=== PATIENT | female | born 1980 | race Caucasian/White ===

== ENCOUNTER → 2022-01-14 13:08 | Outpatient (BNVA) | payer OTHER, MEDICAID, SELFPAY | PROVIDERS: Visit Provider Anesthesiology | DX: S83.206A Unspecified tear of unspecified meniscus, current injury, right knee, initial encounter (principal); M17.0 Bilateral primary osteoarthritis of knee | CPT/HCPCS: 99202 ==

== ENCOUNTER 2022-02-19 06:16 | Outpatient (REF) | payer OTHER, MEDICAID, SELFPAY ==
--- NOTE | ~2022-02-19 | FL_ITS ---
EXAMINATION: XR FLUOROSCOPY WITH IMAGES CLINICAL INFORMATION: M25.561 - Pain in right knee COMPARISON: None. TECHNIQUE: Fluoroscopy Supervised By: Dr. Cyrus Coleman. Fluoroscopy Time: 0.1 minutes. Cumulative Dose: 2.93 mGy. DAP: 0.771 Gycm2. Images: 2. FINDINGS: There are spinal needles adjacent to the distal femoral shaft, medial and lateral sides, mid depth. There is a spinal needle adjacent to the proximal tibia on medial side mid depth. FL/FL guidance in treatment room IMPRESSION: Fluoroscopy for pain management procedures.
== END 2022-02-19 06:17 | disposition home or self-care (01) ==
LOC: CF 06:16
PROVIDERS: Visit Provider Anesthesiology
DX: Z13.89 Encounter for screening for other disorder (principal)

== ENCOUNTER → 2022-02-21 08:02 | Outpatient (BNVA) | payer OTHER, MEDICAID, SELFPAY | PROVIDERS: PCP Internal Medicine; Visit Provider Anesthesiology | DX: S83.206D Unspecified tear of unspecified meniscus, current injury, right knee, subsequent encounter (principal); M17.0 Bilateral primary osteoarthritis of knee | CPT/HCPCS: Q3014 ==

== ENCOUNTER 2023-03-27 08:30 | Outpatient (RCR) | payer OTHER, MEDICAID, SELFPAY ==
--- NOTE | 2023-03-26 12:31 | PC.NURSE ---
Unable to meet with Adeel as [facility] staff Jordana told this editorial writer that Adeel told her she needed to leave early today as her PT1 ride was coming at 12:30 to pick her up as she needed to be home early to get children off the bus. She told Jordana that this was not going to be a regular occurrence.
--- NOTE | 2023-03-26 16:40 | HO.PHP ---
Glass Scullion checked in with pt after the [facility] group to help encourage pt not to leave early. Pt stated she has not been sleeping at night, stated she will be leaving at 12:30 because that's when her transportation would be coming to get her, stated she will also try to rest so that she will not be falling asleep in groups tomorrow. Attempts were made to support pt with staying awake in groups. Pt thinks it may be her medication causing her tiredness during the day, Pt encouraged to speak with her doctor making any changes or adjustments. Pt states she will resume groups tomorrow and plan for a full day.
[2023-03-27 10:41] VITALS: BP 112/72; PULSE 79; TEMP 36.7
[2023-03-27 10:44] VITALS: BMI 25.3
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
--- NOTE | 2023-03-27 14:27 | HO.PHP ---
Client's case has been opened and reviewed in treatment team.
--- NOTE | 2023-03-27 16:14 | PC.ADMIT ---
Unable to meet with Riveravitaly on 03/27/22 as [facility] staff Jordana told this narrative writer that Adeel told her she needed to leave early today as her PT1 ride was coming at 12:30 to pick her up as she needed to be home early to get children off the bus. She told Jordana that this was not going to be a regular occurrence. Patient is a 42 year old female who was referred to [facility] by [facility] d/t increased anxiety, depression, and hx of substance use. She reports that she used crack yesterday and is using about twice a week. She stated she is looking for medication assisted tx with [facility] for more support. She is also interested in a head men's golf coach thus we called Jefferson from [facility] who came to [facility] to help set her up with a head men's golf coach. Patient has legal history. HX of A &B and is reportedly on probation. See Integrative Assessment for more information. Patient also reports history of Heroin use however reports she has not used in 10 years and is on MAT with Suboxone SL. When I asked patient if she ever needed narcan she stated, I was clean but I used heroin (one time) in November or December 2022 so I could go into [facility] for treatment of crack. My father who is an addict told me to do this . Patient reports she overdosed and needed to be Narcaned at that time. OD was accidental. Patient reports she had been clean for 8-10 years prior to the overdose. Patient had to leave the program early today. See Nurses note 03/27/23. During the nursing assessment patient presented alert and oriented x4. calm and cooperative. She presented with anxious mood and affect. Denied SI or thoughts to harm herself. She stated she wants to get sober. Medications reconciled with patent's medication list and per pharmacy. I also called [facility] service Jet at and was faxed an old medication list that appeared not to be updated. I called the service again and asked to speak to her VNA to reconcile her medications and the person I spoke to stated someone would call me. I called the VNA number Anneadriana gave me and spoke to Alice WEBER who stated she is updating Riveravitaly' s medication list and stated whatever the pharmacy told me she is taking that is what she is taking. She stated she would try and update the list tonight.
--- NOTE | 2023-03-28 09:37 | PC.NURSE ---
Bello did not show up to the program. I called her and she stated she just woke up. She sounded groggy as if she just woke up. She stated she overslept. She did move out of her boyfriends home and is living in her apartment. She stated we have the address. I asked what she was going to do over the weekend and she stated laundry. I recommended she go to some NA meetings and we discussed meetings she could go to in [place] and also gave her the NA website for meetings. She denied SI, stated she was safe and would be at the program on Friday. [facility] staff is aware.
--- NOTE | 2023-03-28 19:55 | PM.EVENT ---
Event Note Date of Service: 03/28/23 Event Note: Unable to meet with patient as she abruptly left program early yesterday 03/27 and then did not show up to the program today 03/28 (apparently she overslept). Time Spent With Patient Time: Total time managing care of this patient today ____ minutes.
--- NOTE | 2023-03-31 09:31 | PC.NURSE ---
Bello did not show up to the program this morning. I called and left her a message to call me back.
--- NOTE | 2023-03-31 09:57 | PC.NURSE ---
I called Adeel for the second time. I left her another message to call me back. I reached out to Bello's emergency parts counter sales person David who stated he stopped by her house this morning and she was in bed sleeping. He stated she was ok. I asked him to have her call us when she gets up.
--- NOTE | 2023-03-31 16:40 | HO.PHP ---
[facility] staff member followed up with Adeel due to her missing program. PHP staff member informed Adeel due to her attendance at this point in time we will have to be discharging her from services. Adeel felt as though because she informed staff why she was leaving early or not coming in that day it would be excused. PHP staff voiced that the team would like to see Adeel get everything she can from the program and at this point she hasn't completed one full day. PHP staff member encouraged Adeel to contact Jasmine to complete the intake so she can get everything she can from the program. Adeel responded negatively to the clinician and didn't feel it was fair. PHP staff reiterated are protocols and voiced that she can call Jasmine to return to program when ready. Adeel was receptive and asked for the number. [facility] staff member also assessed safety. Adeel reported no concerns around SI, plan or intent and voiced she was safe.
== END 2023-03-27 23:59 | disposition home or self-care (01) ==
LOC: HO.PHPA 08:30
PROVIDERS: Visit Provider Psychiatry & Neurology Psychiatry
DX: F43.10 Post-traumatic stress disorder, unspecified (principal); F32.A Depression, unspecified
CPT/HCPCS: 90791; 90853

== ENCOUNTER 2023-04-28 08:49 | Outpatient (REF) | payer OTHER, SELFPAY ==
[2023-04-28 10:14] LABS: Basophils Percent Auto 0.2 % (0-2); Eosinophils Absolute Auto 0.1 X10*3/uL (0.0-0.4); Eosinophils Percent Auto 1.1 % (0-4); Hematocrit 35.9 % (37.0-47.0); Hemoglobin 12.1 g/dl (12.0-16.0); Imm Gran Abs Auto 0.02 X10*3/uL (0.00-0.03); Imm Gran Pct Auto 0.2 % (0.0-0.4); Lymphocytes Absolute Auto 5.9 X10*3/uL (1.2-4.9); Lymphocytes Percent Auto 62.5 % (20-40); MANUAL DIFF FLAG SCAN; Mean Corpuscular HGB Conc 33.7 g/dl (31.0-35.0); Mean Corpuscular Hemoglobin 29.9 pg (27.0-33.0); Mean Corpuscular Volume 88.6 fL (80.0-98.0); Mean Platelet Volume 9.8 fL (9.4-12.3); Monocytes Absolute Auto 0.7 X10*3/uL (0.1-1.2); Monocytes Percent Auto 7.1 % (2-11); Neutrophils Absolute Auto 2.7 x10*3/uL (2.0-8.3); Neutrophils Percent Auto 28.9 % (45-73); Platelet Count 374 X10*3/uL (160-400); Red Blood Count 4.05 X10*6/uL (4.20-5.50); Red Cell Distribution Width 13.6 % (11.0-16.0); SCAN SMEAR FLAG 1; White Blood Count 9.4 X10*3/uL (4.8-10.8)
[2023-04-28 10:23] LABS: Estimated Average Glucose 114 mg/dL; Hemoglobin A1c % 5.6 % (<6.0)
[2023-04-28 10:42] LABS: SLIDE REVIEW VERIFIED
[2023-04-28 10:58] LABS: Alanine Aminotransferase 7 U/L (0-31); Albumin Level 3.7 g/dL (3.5-5.0); Alkaline Phosphatase 37 U/L (39-117); Anion Gap 13 (12-20); Aspartate Amino Transferase 7 U/L (5-31); Bilirubin Total 0.3 mg/dL (0.0-1.0); Blood Urea Nitrogen 22 mg/dL (9-16); Calcium 8.7 mg/dL (8.4-10.2); Carbon Dioxide 29 mmol/L (22-29); Chloride 104 mmol/L (96-108); Cholesterol 140 mg/dL (<200); Estimated Glomerular Filt Rate > 60; Glucose Fasting 99 mg/dL (60-99); HDL Cholesterol 48 mg/dL (>40); LDL Cholesterol Calculated 81 mg/dL (<100); Potassium 3.7 mmol/L (3.3-5.1); Sodium 142 mmol/L (135-145); Total Protein 6.6 g/dL (6.5-8.0); Triglycerides 56 mg/dL (<150)
[2023-04-28 11:01] LABS: HBS Num1 10.98 mIU/mL (0-7.99); HBc Num1 0.13 S/CO (0.00-0.79); HBsAGNum1 0.42 S/CO (0.00-0.99); HIV AB/AG Nonreactive (Nonreactive); HIV Num 1 0.07 S/CO (0.00-0.99); Hepatitis B Core Antibody Nonreactive (Nonreactive); Hepatitis B Surface Antigen Negative (Negative)
[2023-04-28 11:03] LABS: Syphilis Screen Nonreactive (Nonreactive)
[2023-04-28 11:06] LABS: Free T4 (Free Thyroxine) 1.03 ng/dL (0.71-1.85); Thyroid Stimulating Hormone 0.49 uIU/mL (0.32-4.0)
[2023-04-28 11:57] LABS: HBS Num2 11.67 mIU/mL (0-7.99); ~Hepatitis B Surface Antibody GRAYZONE (Nonreactive)
[2023-04-28 15:32] LABS: CT PCR NOT DETECTED (Not Detect.); NG PCR NOT DETECTED (Not Detect.)
== END 2023-04-28 08:50 | disposition home or self-care (01) ==
LOC: HO.LAB 08:49
PROVIDERS: PCP Internal Medicine; Visit Provider Psychiatry & Neurology Psychiatry
DX: F31.9 Bipolar disorder, unspecified (principal)
CPT/HCPCS: 0353U; 80053; 80061; 80164; 83036; 84439; 84443; 85025; 86704; 86706; 86780; 87340; 87389

== ENCOUNTER 2023-04-29 13:18 | Outpatient (REF) | payer OTHER, SELFPAY ==
[2023-04-29 14:44] LABS: Ethanol < 10 mg/dL
[2023-04-29 15:33] LABS: Amphetamine Screen Urine Not Detected (Not Detect); Barbiturates, Urine Not Detected (Not Detect); Benzodiazepines Screen Urine Not Detected (Not Detect); Cannabinoid Screen Urine Not Detected (Not Detect); Cocaine Screen Urine Not Detected (Not Detect); Fentanyl, urine Not Detected (Not Detect); Opiate Screen Urine Not Detected (Not Detect); Phencyclidine Screen Urine Not Detected (Not Detect)
== END 2023-04-29 13:19 | disposition home or self-care (01) ==
LOC: HO.LAB 13:18
PROVIDERS: Visit Provider Psychiatry & Neurology Psychiatry
DX: F11.20 Opioid dependence, uncomplicated (principal)
CPT/HCPCS: 80307

== ENCOUNTER → 2023-05-02 14:00 | Outpatient (BNV) | payer OTHER, MEDICAID, SELFPAY | PROVIDERS: Visit Provider Psychiatry & Neurology Psychiatry | DX: F11.20 Opioid dependence, uncomplicated (principal); F14.20 Cocaine dependence, uncomplicated; F41.1 Generalized anxiety disorder; F31.30 Bipolar disorder, current episode depressed, mild or moderate severity, unspecified; F43.10 Post-traumatic stress disorder, unspecified | CPT/HCPCS: 90792; 99213 ==

== ENCOUNTER 2023-05-08 14:00 | Outpatient (RCR) | payer OTHER, SELFPAY ==
[2023-04-25 13:14] VITALS: BP 130/76; PULSE 69; TEMP 37; BMI 26.8
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
[2023-04-25 15:15] LABS: Amphetamine Screen Urine Not Detected (Not Detect); Barbiturates, Urine Not Detected (Not Detect); Benzodiazepines Screen Urine POSITIVE (Not Detect); Cannabinoid Screen Urine POSITIVE (Not Detect); Cocaine Screen Urine POSITIVE (Not Detect); Fentanyl, urine Not Detected (Not Detect); Opiate Screen Urine Not Detected (Not Detect); Phencyclidine Screen Urine Not Detected (Not Detect)
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
--- NOTE | 2023-04-28 14:23 | HO.PHP ---
Adeel asked designer writer to call her foreign policy officer Samreen Vieira at [phone], a release was obtained. Meat Counter Clerk called at roughly 2:15 spoke to foreign policy officer Dariel who requested a letter stating that Adeel is currently enrolled at [facility]. The letter was faxed to .The Probabtion officer requested to be notified if Adeel does not complete the program.
--- NOTE | 2023-05-01 18:02 | HO.PHP ---
Client's case has been opened and reviewed in treatment team.
--- NOTE | 2023-05-02 10:45 | HO.PHPPROGNO ---
Subjective Subjective Date of Service: 05/02/23 Reason For Visit: PTSD,anxiety Interim History: Patient seen for follow-up she's been falling asleep in groups this AM according to staff. She reports that she just picked up her clonazepam 1 mg TID script her PCP had sent over. She started back on this morning. She denies feeling sleepy and seems surprised that staff were concerned about her being sleepy. She admits perhaps it is more than she needs, and is agreeable to having the dose decreased to 1/2 tablet and will plan to decrease the dose to 0.5 mg TID with 0.5 mg prn (in lieu of 1 mg TID). She shares some complaints about her VNA not knowing what she is doing and patient having to remind her when she runs out of medications. She says she has been doing better since moving her Depakote ER from 1000 mg qAM to 500 mg BID. She reports that her provider increased her dose of Buspar to 15 mg TID. She reports that the prazosin has been working well, she is sleeping better but is still having disturbed sleep, dreams and would like to increase the dose at night. She denies any substance use and is open to increasing topiramate to BID dosing. Denies any SI, HI, AH, VH. Medication Compliance: Yes Side effects from medications: No Attending Groups: Yes Review of Systems Acute medical concerns: No Mental Status Exam Mental Status Exam Narrative: Alert, oriented, in no acute distress. Calm, cooperative, engaged. No psychomotor agitation or neurovegetative retardation. Eye contact maintained. Mood anxious, affect variable, mood congruent. Speech normal. Thought process linear, coherent. Thought content related to stressors, denies any helplessness, hopelessness or SI.? No aggressive ideation or HI. No paranoia or delusional content elicited. No evidence of psychosis. Insight and judgment fair but adequate. Diagnostics Vital Signs (24Hr): BMI result Body Mass Index 26.8 Assessment & Plan Assessment & Plan (1) Opioid use disorder: Status: Acute Code(s): F11.90 - Opioid use, unspecified, uncomplicated (2) Cocaine abuse: Status: Acute Code(s): F14.10 - Cocaine abuse, uncomplicated (3) Generalized anxiety disorder: Status: Acute Code(s): F41.1 - Generalized anxiety disorder (4) Bipolar disorder, most recent episode depressed: Status: Acute Code(s): F31.30 - Bipolar disorder, current episode depressed, mild or moderate severity, unspecified (5) PTSD (post-traumatic stress disorder): Status: Acute Code(s): F43.10 - Post-traumatic stress disorder, unspecified Plan increase topiramate to 50 mg qhs start topiramate 25 mg qAM increase prazosin to 2 mg qhs (or 1 mg if better tolerated) check VS on Friday to see if theres room for instituting AM dose of prazosin decrease clonazepam to 0.5 mg TID and 0.5 mg PRN continue Buspar 15 mg TID continue duloxetine Patient educated on: diagnosis, medication risk/benefits and substance abuse Informed Consent: understands Reason for contiued partial hosp. stay Substantial Risk for: inability to function, rapid decompensation and med/psych decompensation Certification I certify that partial hospital treatment is medically necessary due to the symptoms and problems resulting from the patient's mental illness and the failure to treat the patient at the partial hospital level of care would likely result in the patient requiring inpatient psychiatric care which could not be prevented at a less intensive level of care. Total time managing care of this patient today __30__ minutes. Discharge Plan Discharge Attending provider: Kellie Magdaleno Medications: New topiramate 50 mg tablet 50 mg PO BEDTIME 30 Days Qty: 30 0RF Continued duloxetine 20 mg capsule,delayed release(DR/EC) 20 mg PO DAILY Rx Instructions: TAKE 1 CAPSULE BY MOUTH WITH 60mg CAPSULE FOR total OF 80mg EVERY MORNING prednisone 20 mg Tablet 40 mg PO DAILY Rx Instructions: Take two tabs daily x 4 days. Filled 04/24/23. olanzapine 5 mg Tablet 5 mg PO BEDTIME Rx Instructions: Take one tab by mouth at bedtime with the 10 mg Olanzapine tab. olanzapine 10 mg tablet 10 mg PO BID albuterol sulfate 90 mcg/actuation HFA aerosol inhaler 2 puff inhalation QID PRN (Reason: wheezing) fluticasone propionate 50 mcg/actuation spray,suspension 1 spray intranasal QAM buspirone 15 mg Tablet 15 mg PO TID multivitamin with folic acid [Daily-Genie (with folic acid)] 400 mcg tablet 1 tab PO DAILY fluticasone furoate-vilanterol [Breo Ellipta] 200-25 mcg/dose blister with device 1 ea inhalation DAILY naproxen 500 mg tablet 500 mg PO BID PRN (Reason: moderate pain) pregabalin 150 mg capsule 150 mg PO BID buprenorphine-naloxone 8-2 mg film 2 film sublingual DAILY varenicline 0.5 mg tablet 0.5 mg PO BID duloxetine 60 mg capsule,delayed release(DR/EC) 60 mg PO DAILY hydroxyzine pamoate 25 mg capsule 25 - 50 mg PO TID Rx Instructions: Take 1-2 capsules three times a day for anxiety or insomnia melatonin 5 mg tablet 5 mg PO BEDTIME ferrous sulfate 324 mg (65 mg iron) tablet,delayed release (DR/EC) 324 mg PO DAILY acetaminophen [Pain Relief ES (acetaminophen)] 500 mg tablet 1,000 mg PO Q8H PRN (Reason: severe pain) omeprazole 20 mg capsule,delayed release(DR/EC) 20 mg PO BID docusate sodium 100 mg capsule 100 mg PO BID PRN (Reason: Constipation) clonazepam 1 mg tablet 1 mg PO TID montelukast 10 mg tablet 10 mg PO BEDTIME Changed divalproex 500 mg tablet extended release 24 hr 1,000 mg PO QPM Qty: 30 0RF topiramate 25 mg tablet 25 mg PO QAM Qty: 30 0RF prazosin 1 mg capsule 1 - 2 mg PO BEDTIME Qty: 30 0RF
[2023-05-02 15:31] LABS: Amphetamine Screen Urine Not Detected (Not Detect); Barbiturates, Urine Not Detected (Not Detect); Benzodiazepines Screen Urine Not Detected (Not Detect); Cannabinoid Screen Urine Not Detected (Not Detect); Cocaine Screen Urine Not Detected (Not Detect); Fentanyl, urine Not Detected (Not Detect); Opiate Screen Urine Not Detected (Not Detect); Phencyclidine Screen Urine Not Detected (Not Detect)
--- NOTE | 2023-05-06 09:36 | PC.NURSE ---
Adeel did not show up to the program this morning. I called and left her a voice message to call me back. Awaiting a call back.
--- NOTE | 2023-05-06 09:52 | PC.NURSE ---
Left second message on Adeel's voice mail to call me back regarding her absence from the program today. Per protocol I called Adeel's emergency contact listed David Aiken who is her partner and left him a message to call me back to f/u with Adeel's absence from the program today. Awaiting call back.
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
--- NOTE | 2023-05-07 14:47 | HO.PHP ---
Jewelry Finisher met with pt around 12:00 pm to call [facility] and to complete the referral packet. The referral was completed with Adeel and paperwork was submitted via email as requested, Pt wants to attend [facility] post discharge from [facility], for further addiction support.
--- NOTE | 2023-05-08 13:17 | PC.NURSE ---
Appointment with Chief Wellness Officer at [facility] at [address] [place] [address]. Office Number [phone]. Appointment on May 28, 2023 at 2:00pm.
--- NOTE | 2023-05-08 17:41 | HO.PHPPROGNO ---
Subjective Subjective Date of Service: 05/08/23 Reason For Visit: PTSD,anxiety Interim History: Patient seen for follow-up, anticipating discharge at the end of program today.? Patient reports that she will be going to [facility]. Reports no acute issues or concerns. Medication compliant, she is noted to be sleepy in gabby AM groups, she agrees it may be her medication. We moved her 1000 mg ER Depakote from AM dosing to BID dosing (500 mg BID), she did not want the olanzapine to be decreased, so she continued on 10 mg in AM and 15 mg QHS. Today she is open to redistributing the olanzapine to 5 mg in AM and 20 mg at night. medications well-tolerated. And lowering the Dpeakote AM dose to 250 mg and continue 500 mg qhs. She otherwise denies any adverse effects.? Mood is stable.? Denies any hopelessness or SI. Denies thoughts of harming self or others at this time. Denies any aggressive ideation or HI. Denies any paranoia or AH or VH. Sleep, appetite, energy stable. Medication Compliance: Yes Side effects from medications: No Attending Groups: Yes Review of Systems Acute medical concerns: No Mental Status Exam Mental Status Exam Narrative: Alert, oriented, in no acute distress. Calm, cooperative. No psychomotor agitation or neurovegetative retardation. Eye contact maintained. Mood tired but euthymic, affect mood congruent. Speech normal. Thought process linear, coherent. Thought content related to stressors, denies any helplessness, hopelessness or SI.? No aggressive ideation or HI. No paranoia or delusional content elicited. No evidence of psychosis. Insight and judgment fair but adequate. Diagnostics Vital Signs (24Hr): BMI result Body Mass Index 26.8 Assessment & Plan Assessment & Plan (1) Opioid use disorder, severe, on maintenance therapy: Status: Acute Code(s): F11.20 - Opioid dependence, uncomplicated (2) Cocaine dependence: Status: Acute Code(s): F14.20 - Cocaine dependence, uncomplicated (3) Generalized anxiety disorder: Status: Acute Code(s): F41.1 - Generalized anxiety disorder (4) Bipolar disorder, most recent episode depressed: Status: Acute Code(s): F31.30 - Bipolar disorder, current episode depressed, mild or moderate severity, unspecified (5) PTSD (post-traumatic stress disorder): Status: Acute Code(s): F43.10 - Post-traumatic stress disorder, unspecified Plan Discharge from [facility] continue regular medications will defer further medication management to outpatient provider Refills sent to pharmacy Patient educated on: diagnosis, medication risk/benefits and substance abuse Informed Consent: understands Reason for contiued partial hosp. stay Substantial Risk for: inability to function, rapid decompensation and med/psych decompensation Certification I certify that partial hospital treatment is medically necessary due to the symptoms and problems resulting from the patient's mental illness and the failure to treat the patient at the partial hospital level of care would likely result in the patient requiring inpatient psychiatric care which could not be prevented at a less intensive level of care. Total time managing care of this patient today __30__ minutes. Discharge Plan Discharge Attending provider: Kellie Magdaleno Additional Instructions: Appointment with Academy Education Director at [facility] at [address] [place] [address]. Office Number [phone]. Appointment on May 28, 2023 at 2:00pm. Medications: New topiramate 50 mg tablet 50 mg PO BEDTIME 30 Days Qty: 30 0RF prazosin 2 mg capsule 2 mg PO BEDTIME Qty: 20 0RF olanzapine 20 mg tablet 20 mg PO BEDTIME Qty: 15 0RF divalproex [Depakote ER] 250 mg tablet extended release 24 hr 250 mg PO .QHS 30 Days Qty: 30 0RF Rx Instructions: Total = 750 mg/day Continued duloxetine 20 mg capsule,delayed release(DR/EC) 20 mg PO DAILY Rx Instructions: TAKE 1 CAPSULE BY MOUTH WITH 60mg CAPSULE FOR total OF 80mg EVERY MORNING albuterol sulfate 90 mcg/actuation HFA aerosol inhaler 2 puff inhalation QID PRN (Reason: wheezing) fluticasone propionate 50 mcg/actuation spray,suspension 1 spray intranasal QAM buspirone 15 mg Tablet 15 mg PO TID multivitamin with folic acid [Daily-Genie (with folic acid)] 400 mcg tablet 1 tab PO DAILY fluticasone furoate-vilanterol [Breo Ellipta] 200-25 mcg/dose blister with device 1 ea inhalation DAILY naproxen 500 mg tablet 500 mg PO BID PRN (Reason: moderate pain) pregabalin 150 mg capsule 150 mg PO BID buprenorphine-naloxone 8-2 mg film 2 film sublingual DAILY varenicline 0.5 mg tablet 0.5 mg PO BID duloxetine 60 mg capsule,delayed release(DR/EC) 60 mg PO DAILY hydroxyzine pamoate 25 mg capsule 25 - 50 mg PO TID Rx Instructions: Take 1-2 capsules three times a day for anxiety or insomnia melatonin 5 mg tablet 5 mg PO BEDTIME ferrous sulfate 324 mg (65 mg iron) tablet,delayed release (DR/EC) 324 mg PO DAILY acetaminophen [Pain Relief ES (acetaminophen)] 500 mg tablet 1,000 mg PO Q8H PRN (Reason: severe pain) omeprazole 20 mg capsule,delayed release(DR/EC) 20 mg PO BID docusate sodium 100 mg capsule 100 mg PO BID PRN (Reason: Constipation) montelukast 10 mg tablet 10 mg PO BEDTIME Changed topiramate 25 mg tablet 25 mg PO QAM Qty: 30 0RF clonazepam 1 mg tablet 0.5 mg PO QID PRN (Reason: moderate anxiety) Qty: 10 0RF prazosin 1 mg capsule 1 mg PO QAM Qty: 30 0RF olanzapine 5 mg Tablet 5 mg PO QAM Qty: 15 0RF Rx Instructions: Take one tab by mouth at bedtime with the 10 mg Olanzapine tab. divalproex 500 mg tablet extended release 24 hr 500 mg PO QPM Qty: 30 0RF Discontinued prednisone 20 mg Tablet 40 mg PO DAILY Rx Instructions: Take two tabs daily x 4 days. Filled 04/24/23. olanzapine 10 mg tablet 10 mg PO BID Stand Alone Forms: Patient Portal Discharge page Patient Education: Cocaine Abuse (DC), Bipolar Disorder (DC), Opioid Use Disorder (DC)
== END 2023-05-08 23:59 | disposition home or self-care (01) ==
LOC: HO.PHPA 14:00
PROVIDERS: Visit Provider Psychiatry & Neurology Psychiatry
DX: F43.10 Post-traumatic stress disorder, unspecified (principal); F31.30 Bipolar disorder, current episode depressed, mild or moderate severity, unspecified; F41.1 Generalized anxiety disorder; F14.20 Cocaine dependence, uncomplicated; F11.20 Opioid dependence, uncomplicated; Z79.899 Other long term (current) drug therapy
CPT/HCPCS: 80307; 90791; 90853

== ENCOUNTER 2023-07-21 10:49 | Outpatient (RCR) | payer OTHER, MEDICAID, SELFPAY | END 2023-07-21 23:59 | disposition home or self-care (01) | LOC: HO.PHPA 10:49 | PROVIDERS: PCP Psychiatry & Neurology Psychiatry; Visit Provider Psychiatry & Neurology Psychiatry | DX: Z13.89 Encounter for screening for other disorder (principal) ==

== ENCOUNTER → 2023-07-23 08:15 | Outpatient (BNV) | payer OTHER, SELFPAY | PROVIDERS: Visit Provider Psychiatry & Neurology Psychiatry | DX: F31.60 Bipolar disorder, current episode mixed, unspecified (principal); F43.10 Post-traumatic stress disorder, unspecified; F14.21 Cocaine dependence, in remission; F12.21 Cannabis dependence, in remission; F11.20 Opioid dependence, uncomplicated | CPT/HCPCS: 90792 ==

== ENCOUNTER 2023-07-25 08:15 | Outpatient (RCR) | payer OTHER, SELFPAY ==
[2023-07-22 11:36] VITALS: BP 116/68; PULSE 70; TEMP 36.9
[2023-07-22 11:47] VITALS: BMI 29.6
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
[2023-07-23 14:24] LABS: Amphetamine Screen Urine Not Detected (Not Detect); Barbiturates, Urine Not Detected (Not Detect); Benzodiazepines Screen Urine Not Detected (Not Detect); Buprenorphine Scr Positive (Not Detect); Cannabinoid Screen Urine Not Detected (Not Detect); Cocaine Screen Urine Not Detected (Not Detect); Fentanyl, urine Not Detected (Not Detect); Methadone Screen, Urine Not Detected (Not Detect); Opiate Screen Urine Not Detected (Not Detect); Oxycodone Screen Urine Not Detected (Not Detect); Phencyclidine Screen Urine Not Detected (Not Detect)
--- NOTE | 2023-07-24 14:44 | HO.PHP ---
Client's case has been opened and reviewed in team.
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
--- NOTE | 2023-07-28 09:44 | HO.PHP ---
PHP admin, Jasmine, informed the team that Adeel will not be in attendance to program today due to being sick. Adeel reported no safety concerns and will be here tomorrow.
--- NOTE | 2023-07-29 12:03 | HO.PHP ---
Pt called [facility] this morning to state she is still sick so she will not be in today. Today's call-out makes 3 days missed out of 6. Test Desk Supervisor called pt but her phone is not connected so medical technical writer called pt's emergency contact at 8:45 am, in attempt to speak to her about her absences and plan moving forward. Pt called back at 9:30, stated she has been sick, reports she had a fever yesterday and has a headache and cough, pt was heard coughing. Pt encouraged to go to urgent care and/or call her PCP. Pt told she will be discharged from [facility] due to her medical illness and absences but told she will be able to return when better. Pt wanted to know when she can return, medical technical writer stated she will speak to the team and medical technical writer will call her back to inform her of specifics. Test Desk Supervisor called pt back 3 times at the new number she provided but pt did not answer, no option to leave a voicemail so medical technical writer will continue to call pt to complete her discharge and provide info.
== END 2023-07-25 23:59 | disposition home or self-care (01) ==
LOC: HO.PHPA 08:15
PROVIDERS: Visit Provider Psychiatry & Neurology Psychiatry
DX: F43.10 Post-traumatic stress disorder, unspecified (principal); F41.9 Anxiety disorder, unspecified; F11.20 Opioid dependence, uncomplicated; Z79.899 Other long term (current) drug therapy
CPT/HCPCS: 80307; 90791; 90853